=== PATIENT | female | born 1975 | race Caucasian/White ===

== ENCOUNTER 2023-11-06 12:12 | Outpatient (REF) | payer OTHER, SELFPAY ==
--- NOTE | ~2023-11-06 | XR_ITS ---
EXAMINATION: XR SOFT TISSUE NECK CLINICAL INDICATION: Throat pain of one week's duration. COMPARISON: None available. TECHNIQUE: AP and lateral views of the soft tissue neck were obtained. FINDINGS: Soft tissue films of the neck demonstrate a normal larynx, pharynx and upper trachea. No soft tissue swelling or opaque foreign body is demonstrated. There is mild degenerative disc disease at C4-C5, and marked degenerative disc disease is seen at C5-C6. There is multi-level minimal lower cervical spondylosis. XR/XR soft tissue neck IMPRESSION: Unremarkable radiographic appearance of the soft tissues of the neck. No foreign body is noted.
== END 2023-11-06 12:13 | disposition home or self-care (01) ==
LOC: HO.XRAY 12:12
PROVIDERS: Visit Provider Internal Medicine
DX: J05.10 Acute epiglottitis without obstruction (principal)
CPT/HCPCS: 70360